=== PATIENT | female | born 1970 | race Caucasian/White ===

== ENCOUNTER 2021-12-14 12:59 | Observation (INO) | payer OTHER ==
[2021-12-14] MEDS ORDERED: ONDANSETRON 4 MG/2 ML VIAL ONE (13:19)
[2021-12-14] MEDS ORDERED: ONDANSETRON 4 MG/2 ML VIAL IVPUSH ONE (13:25)
[2021-12-14] MEDS ORDERED: LACTATED RINGERS SOLUTION 1000 ML INFUS.BAG IV ONE (13:26)
[2021-12-14 13:47] VITALS: BMI 28.1
[2021-12-14 13:53] LABS: BASO % 0.6 % (0-2.0); EOS % 1.7 % (0-4.5); HEMATOCRIT 36.4 % (32.4-45.2); LYMPH % 25.8 % (8-40); MCHC 32.9 g/dl (32.0-36.0); MEAN CELL VOLUME 88.2 fl (80-96); MEAN PLT VOLUME 8.4 fl (7.5-11.1); MONO % 7.8 % (3.8-10.2); NEUT % 64.1 % (42.8-82.8); PLATELET COUNT 294 10^3/uL (134-434); RBC 4.13 M/mm3 (3.60-5.2); RDW 13.9 % (11.6-15.6); WHITE BLOOD COUNT 8.9 K/mm3 (4.0-10.0)
[2021-12-14 14:13] LABS: CHLORIDE 107 mmol/L (98-107); SODIUM 140 mmol/L (136-145)
[2021-12-14 14:15] LABS: CALCIUM 8.1 mg/dL (8.5-10.1)
[2021-12-14 14:16] LABS: ALBUMIN 3.3 g/dl (3.4-5.0); ANION GAP 10 MMOL/L (8-16); BLOOD UREA NITROGEN 9.9 mg/dL (7-18); CO2 24 mmol/L (21-32); GLUCOSE,RANDOM 116 mg/dL (74-106)
[2021-12-14 14:19] LABS: CREATININE 0.6 mg/dL (0.55-1.3); SGOT/AST 11 U/L (15-37); SGPT/ALT 14 U/L (13-61)
[2021-12-14 14:20] LABS: TOT PROT 6.7 g/dl (6.4-8.2)
[2021-12-14 14:21] LABS: BILIRUBIN,TOTAL 0.4 mg/dL (0.2-1)
[2021-12-14 14:22] LABS: ALK PHOS 62 U/L (45-117)
[2021-12-14] MEDS ORDERED: ACETAMINOPHEN 1000 MG/100 ML BAG IVPB ONE (20:03)
[2021-12-14] MEDS ORDERED: ACETAMINOPHEN INJECTION 100 ML IVPB ONE (20:18)
[2021-12-15] MEDS ORDERED: ACETAMINOPHEN/CAFFEINE/BUTALBITAL 1 TAB PO ONE (02:24)
[2021-12-15] MEDS ORDERED: ACETAMINOPHEN/CAFFEINE/BUTALBITAL 1 TAB ONE (02:26)
[2021-12-15] MEDS: SERTRALINE HCL 50 MG TABLET (FP) PO SCH (16:01)
[2021-12-15 21:34] LABS: COCAINE, UR NEGATIVE (NEGATIVE); METHADONE, UR NEGATIVE (NEGATIVE); OPIATES, URI NEGATIVE (NEGATIVE); PHENCYCLIDINE,URINE NEGATIVE (NEGATIVE); URINE AMPHETAMINES NEGATIVE (NEGATIVE); URINE BARBITURATES POSITIVE (NEGATIVE); URINE BENZODIAZEPINES NEGATIVE (NEGATIVE)
[2021-12-16] MEDS: SERTRALINE HCL 50 MG TABLET (FP) PO SCH (09:16)
[2021-12-16] MEDS ORDERED: LACTOBACILLUS ACIDOPHILUS 1 TABLET PO SCH (11:15)
[2021-12-16 14:21] LABS: CALCIUM 8.7 mg/dL (8.5-10.1)
[2021-12-16 14:22] LABS: BLOOD UREA NITROGEN 12.1 mg/dL (7-18)
[2021-12-16 14:25] LABS: CREATININE 0.6 mg/dL (0.55-1.3); PHOSPHOROUS 3.2 mg/dL (2.5-4.9)
[2021-12-16 15:36] VITALS: BP 130/91; PULSE 61; TEMP 97.9
[2021-12-16] MEDS ORDERED: MICONAZOLE NITRATE 200 MG VAGINAL SUPPOSITORY PV SCH (22:00)
== END 2021-12-16 16:00 | disposition home or self-care (01) ==
LOC: JER 12:59 → JERBED 12-15 08:24 → J7W 12-15 15:16
PROVIDERS: ADMIT Internal Medicine; ATTEND Internal Medicine
PROC: 3E033NZ Introduction of Analgesics, Hypnotics, Sedatives into Peripheral Vein, Percutaneous Approach (ICD-10-PCS; principal; 2021-12-15)
PROC: 3E0337Z Introduction of Electrolytic and Water Balance Substance into Peripheral Vein, Percutaneous Approach (ICD-10-PCS; 2021-12-15)
PROC: 3E033GC Introduction of Other Therapeutic Substance into Peripheral Vein, Percutaneous Approach (ICD-10-PCS; 2021-12-15)
DX: F32.9 Major depressive disorder, single episode, unspecified (principal)
CPT/HCPCS: 36415; 71045-TC-FY; 80048; 80053; 80307; 82607; 82746; 82962; 83690; 83735; 84100; 84443; 84702; 85025; 99285-25; C9803-CS; G0378; U0003; U0005